=== PATIENT | male | born 1970 | race Caucasian/White ===

== ENCOUNTER 2016-07-02 07:13 | Emergency (ER) | payer SELFPAY | END 2016-07-02 08:15 | disposition home or self-care (01) | LOC: ER 07:13 | DX: T15.12XA Foreign body in conjunctival sac, left eye, initial encounter (principal); T15.02XA Foreign body in cornea, left eye, initial encounter; K21.9 Gastro-esophageal reflux disease without esophagitis; Z90.49 Acquired absence of other specified parts of digestive tract ==